=== PATIENT | male | born 1965 | race American Indian/Alaskan Native ===

== ENCOUNTER 2017-02-12 17:57 | Emergency (ER) | payer SELFPAY ==
[2017-02-12 18:29] LABS: Basophils % (Auto) 0.5 % (0.0-1.8); Eosinophils % (Auto) 0.7 % (0.0-4.3); Hemoglobin 14.4 gm/dl (11.8-15.2); Mean Corpuscular HGB Conc 33 % (32-34); Mean Corpuscular Hemoglobin 29 pg (28-32); Mean Corpuscular Volume 90 fl (84-94); Platelet Count 240 K/mm3 (140-440); Red Blood Count 4.91 M/mm3 (3.65-5.03); Red Cell Distribution Width 12.7 % (13.2-15.2); White Blood Count 9.2 K/mm3 (4.5-11.0)
[2017-02-12 18:39] LABS: INR 1.02 (0.87-1.13)
[2017-02-12 18:40] LABS: Partial Thromboplastin Time 26.6 Sec. (24.2-36.6)
[2017-02-12 18:42] LABS: Anion Gap 13 mmol/L; BUN/Creatinine Ratio 14.54; Blood Urea Nitrogen 16 mg/dL (9-20); Calcium 10.3 mg/dL (8.4-10.2); Carbon Dioxide 26 mmol/L (22-30); Glucose 87 mg/dL (75-100); Potassium 4.4 mmol/L (3.6-5.0); Sodium 141 mmol/L (137-145)
[2017-02-12] MEDS ORDERED: MORPHINE IV ONE ×2 (18:49→23:11)
[2017-02-12] MEDS ORDERED: VALIUM IV ONE (18:49)
[2017-02-12] MEDS ORDERED: ZOFRAN IV ONE (18:49)
[2017-02-12] MEDS ORDERED: APRESOLINE IV ONE (18:50)
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
--- NOTE | 2017-02-12 19:37 | Cat Scan Report ---
FINAL REPORT EXAM: CT HEAD/BRAIN WO CON HISTORY: headache TECHNIQUE: Noncontrast serial axial images from skull base to vertex. PRIORS: None. FINDINGS: There is no mass effect or midline shift. There are no abnormal intra or extra-axial fluid collections. Cortical sulci and lateral ventricles are within normal limits for size and configuration. Basilar cisterns are patent. No acute intracranial hemorrhage is identified. Visualized paranasal sinuses and mastoid air cells are well aerated. No acute osseous abnormality is identified. IMPRESSION: 1. No abnormal mass or acute intracranial hemorrhage is identified.
[2017-02-12] MEDS ORDERED: VASELINE LIP THERAPY TP ONE (22:03)
[2017-02-12] MEDS ORDERED: BENADRYL IV ONE (23:11)
[2017-02-12] MEDS ORDERED: TORADOL IV ONE (23:11)
[2017-02-12] MEDS ORDERED: REGLAN IV ONE (23:11)
[2017-02-12 23:54] VITALS: BP 132/72
== END 2017-02-12 23:54 | disposition home or self-care (01) ==
LOC: ED 17:57
DX: G44.209 Tension-type headache, unspecified, not intractable (principal); I16.0 Hypertensive urgency; M54.2 Cervicalgia
CPT/HCPCS: 36415; 70450; 80048; 84484; 85025; 85610; 85730; 93005; 93010; 96374; 96375; 96376; 99285; G0480; J0360; J1200; J1885; J2270; J2405; J2765; J3360; 80320